=== PATIENT | male | born 1985 | race African-American/Black ===

== ENCOUNTER 2024-10-12 02:46 | Emergency (ER) | payer SELFPAY ==
[~2024-10-12] VITALS: Ht 167.6 cm; Wt 80.0 kg
[2024-10-12 02:50] VITALS: O2SAT 98
[2024-10-12 04:28] VITALS: BP 110/70; PULSE 80; RESP 16; TEMP 36.7; O2SAT 98
[2024-10-12] MEDS: ACETAMINOPHEN 500MG TABLET PO ONE (04:28)
== END 2024-10-12 04:27 ==
LOC: ER 02:46
DX: Z20.89 Contact with and (suspected) exposure to other communicable diseases (principal); I10 Essential (primary) hypertension
CPT/HCPCS: 99284